=== PATIENT | female | born 1960 | race Asian ===

== ENCOUNTER → 2016-06-30 | Outpatient (CLI) | payer BC, OTHER | END | disposition home or self-care (01) | LOC: CFH 09:05 | PROVIDERS: ATTEND Physician Assistant | DX: N39.0 Urinary tract infection, site not specified (principal); R10.2 Pelvic and perineal pain; Z90.721 Acquired absence of ovaries, unilateral; Z87.440 Personal history of urinary (tract) infections | CPT/HCPCS: 76700; 76830 ==

== ENCOUNTER 2017-01-07 17:23 | Emergency (ER) | payer OTHER ==
[~2017-01-07] VITALS: Ht 154.9 cm; Wt 50.3 kg
[2017-01-07] MEDS ORDERED: SODIUM CHLORIDE FLUSH 10ML SYR IVF ONE (18:00)
[2017-01-07] MEDS ORDERED: SODIUM CHLORIDE 0.9% 1,000ML IVBOLUS ONE (18:00)
[2017-01-07 18:18] LABS: HEMATOCRIT 41.2 % (34.6-47.8); HEMOGLOBIN 14.1 g/dL (11.7-16.4); WHITE BLOOD COUNT 11.8 x10^3/uL (3.4-10)
[2017-01-07 18:30] LABS: ASPARTATE AMINO TRANSFERASE 18 U/L (15-37); BLOOD UREA NITROGEN 14 mg/dL (7-18)
[2017-01-07] MEDS ORDERED: ONDANSETRON 2MG/ML, 2ML IVPush ONE (19:30)
[2017-01-07] MEDS ORDERED: MORPHINE SULFATE 4 MG/ML, 1ML IVPush PRN (19:30)
[2017-01-07] MEDS ORDERED: ALPR-475 PO (19:36)
[2017-01-07] MEDS ORDERED: METRONIDAZOLE PMX 500MG/100ML 100 ML IVPB ONE (20:00)
[2017-01-07] MEDS ORDERED: PIPERACILLIN/TAZO/PMX 3.375GM 50 ML IV ONE (20:00)
[2017-01-07] MEDS ORDERED: METRONIDAZOLE PMX 500MG/100ML 100 ML ONE (20:14)
[2017-01-07] MEDS ORDERED: morphine SULFATE 10 MG/ML, 1ML ONE (20:15)
[2017-01-07] MEDS ORDERED: PIPERACILLIN/TAZO/PMX 3.375GM 50 ML ONE (20:15)
[2017-01-07] MEDS ORDERED: ONDANSETRON 2MG/ML, 2ML ONE (20:15)
[2017-01-07 20:33] VITALS: BP 97/59
== END 2017-01-07 21:36 | disposition home or self-care (01) ==
LOC: ED 21:20
DX: K57.30 Diverticulosis of large intestine without perforation or abscess without bleeding (principal); D72.829 Elevated white blood cell count, unspecified
CPT/HCPCS: 36415; 80053; 83605; 84145; 85025; 87040; 96365; 96375; 99284; J2405; J2543; J7030; 96366; 96368